=== PATIENT | male | born 1980 | race Caucasian/White ===

== ENCOUNTER 2023-01-13 07:28 | Outpatient (CLI) | payer OTHER, SELFPAY | END 2023-01-13 07:29 | disposition home or self-care (01) | LOC: NFLDREF 01-14 01:58 | PROVIDERS: PCP Physician Assistant Medical; Referring Provider Physician Assistant Medical; Visit Provider Physician Assistant Medical | DX: E78.5 Hyperlipidemia, unspecified (principal); E03.8 Other specified hypothyroidism | CPT/HCPCS: 80053; 80061; 84443 ==

== ENCOUNTER 2024-02-07 08:25 | Outpatient (CLI) | payer OTHER, SELFPAY | END 2024-02-07 08:26 | disposition home or self-care (01) | LOC: NFLDREF 02-10 07:23 | PROVIDERS: PCP Physician Assistant Medical; Referring Provider Physician Assistant Medical; Visit Provider Physician Assistant Medical | DX: E03.8 Other specified hypothyroidism (principal); E78.2 Mixed hyperlipidemia; Z13.228 Encounter for screening for other metabolic disorders | CPT/HCPCS: 80053; 80061; 84443 ==

== ENCOUNTER 2025-03-12 07:55 | Outpatient (CLI) | payer OTHER, SELFPAY | END 2025-03-12 07:56 | disposition home or self-care (01) | LOC: NFLDREF 03-19 23:39 | PROVIDERS: PCP Physician Assistant Medical; Referring Provider Physician Assistant Medical; Visit Provider Physician Assistant Medical | DX: Z00.00 Encounter for general adult medical examination without abnormal findings (principal); E78.2 Mixed hyperlipidemia; E03.8 Other specified hypothyroidism; F32.1 Major depressive disorder, single episode, moderate; F32.A Depression, unspecified | CPT/HCPCS: 80053; 80061; 84443 ==